=== PATIENT | female | born 1980 | race Caucasian/White ===

== ENCOUNTER 2019-06-08 19:28 | Inpatient (IN) | payer OTHER ==
[2019-06-08 19:40] LABS: ADD MAN DIFF? NO
[2019-06-08 19:42] LABS: ABNORMAL IP MESSAGE 1; BASOPHIL # 0.1 10^3/ul (0.0-0.1); BASOPHILS % 0.8 % (0.0-2.0); EOSINOPHILS # 0.2 10^3/ul (0.0-0.5); EOSINOPHILS % 1.6 % (0.0-7.0); HEMATOCRIT 45.7 % (37.0-47.0); HEMOGLOBIN 14.9 g/dl (12.0-16.0); LYMPHOCYTES % 42.7 % (15.0-51.0); MEAN CORPUSCULAR HGB CONC 32.6 g/dl (32.0-37.0); MEAN CORPUSCULAR VOLUME 85.9 fl (82.0-101.0); MEAN PLATELET VOLUME 9.8 fl (7.4-10.4); MONOCYTE # 1.1 10^3/ul (0.3-0.9); MONOCYTES % 7.6 % (0.0-11.0); NEUTROPHIL # 6.6 10^3/ul (1.6-7.5); NEUTROPHILS % 46.9 % (39.0-77.0); PLATELET COUNT 402 10^3/UL (140-415); RED BLOOD COUNT 5.32 10^6/ul (4.20-5.40); RED CELL DISTRIBUTION WIDTH 14.3 % (11.5-14.5)
[2019-06-08 19:47] LABS: POSITIVE DIFF @See below
[2019-06-08] MEDS: LORAZEPAM 2 MG INJ IV (19:48)
[2019-06-08 20:00] LABS: ANION GAP 19 (5-13); BLOOD UREA NITROGEN 11 mg/dl (7-20); CALCIUM 9.4 mg/dl (8.4-10.2); CARBON DIOXIDE 17 mmol/L (21-31); CHLORIDE 104 mmol/L (97-110); CREATININE 0.85 mg/dl (0.44-1.00); Estimated GFR > 60 mL/min (>60); GLUCOSE 169 mg/dl (70-220); SODIUM 140 mmol/L (135-144)
[2019-06-08] MEDS: ACETAMINOPHEN 325 MG TAB PO (20:56)
[2019-06-08] MEDS: ONDANSETRON 4 MG INJ IV ×2 (20:56→23:02)
[2019-06-08 21:20] LABS: AMPHETAMINE/METHAMPHETAMINE Negative (NEGATIVE); BARBITURATES Negative (NEGATIVE); BENZODIAZEPINES Negative (NEGATIVE); CANNABINOIDS Negative (NEGATIVE); COCAINE Negative (NEGATIVE); OPIATES Negative (NEGATIVE)
[2019-06-08] MEDS ORDERED: ONDANSETRON 4 MG INJ IV (21:30)
[2019-06-08] MEDS ORDERED: LORAZEPAM 2 MG INJ IV (21:30)
[2019-06-08] MEDS ORDERED: ACETAMINOPHEN 325 MG TAB PO (21:30)
[2019-06-08] MEDS: LEVETIRACETAM 1000 MG (PMX) 100 ML IVPB (21:53)
[2019-06-08] MEDS: POTASSIUM CHLORIDE (SR) 20 MEQ TAB PO (21:53)
[2019-06-08] MEDS: SOD CHLORIDE 0.9% 1,000 ML IV (23:03)
[2019-06-08] MEDS: morphine 4 MG/ML VIAL IV (23:03)
[2019-06-08 23:33] LABS: ADD UMIC YES; UR ASCORBIC ACID NEGATIVE (NEGATIVE); UR BILIRUBIN (Dip) NEGATIVE (NEGATIVE); UR BLOOD (Dip) NEGATIVE (NEGATIVE); UR CLARITY SLIGHTLY CLOUDY (CLEAR); UR COLOR YELLOW (YELLOW); UR GLUCOSE (Dip) NEGATIVE (NEGATIVE); UR KETONES (Dip) 1+ mg/dL (NEGATIVE); UR LEUKOCYTE ESTERASE (Dip) 1+ Leu/ul (NEGATIVE); UR NITRITE (Dip) NEGATIVE (NEGATIVE); UR RBC 11 /HPF (0-5); UR SQUAMOUS EPITHELIAL CELL FEW /HPF (FEW); UR TOTAL PROTEIN (Dip) 1+ mg/dl (NEGATIVE); UR UROBILINOGEN (Dip) NEGATIVE (NEGATIVE); UR WBC 6 /HPF (0-5)
[2019-06-09] MEDS: NS + KCL 20 MEQ 1,000 ML IV (00:45)
[2019-06-09] MEDS: ONDANSETRON 4 MG INJ IV (02:12)
[2019-06-09 06:28] LABS: ADD MAN DIFF? NO
[2019-06-09 06:33] LABS: BASOPHIL # 0.1 10^3/ul (0.0-0.1); BASOPHILS % 0.5 % (0.0-2.0); EOSINOPHILS # 0.1 10^3/ul (0.0-0.5); EOSINOPHILS % 0.7 % (0.0-7.0); HEMATOCRIT 41.4 % (37.0-47.0); HEMOGLOBIN 13.4 g/dl (12.0-16.0); LYMPHOCYTES # 2.6 10^3/ul (0.8-2.9); LYMPHOCYTES % 21.8 % (15.0-51.0); MEAN CORPUSCULAR HEMOGLOBIN 27.8 pg (29.0-33.0); MEAN CORPUSCULAR HGB CONC 32.4 g/dl (32.0-37.0); MEAN CORPUSCULAR VOLUME 85.9 fl (82.0-101.0); MEAN PLATELET VOLUME 9.8 fl (7.4-10.4); MONOCYTE # 0.9 10^3/ul (0.3-0.9); NEUTROPHIL # 8.1 10^3/ul (1.6-7.5); NEUTROPHILS % 68.7 % (39.0-77.0); PLATELET COUNT 350 10^3/UL (140-415); RED BLOOD COUNT 4.82 10^6/ul (4.20-5.40); RED CELL DISTRIBUTION WIDTH 14.4 % (11.5-14.5)
[2019-06-09 06:33] LABS: WHITE BLOOD COUNT 11.7 10^3/ul (4.8-10.8)
[2019-06-09 06:56] LABS: ALANINE AMINOTRANSFERASE 41 IU/L (13-69); ALBUMIN 3.7 g/dl (3.3-4.9); ALKALINE PHOSPHATASE 65 IU/L (42-121); ANION GAP 8 (5-13); ASPARTATE AMINO TRANSFERASE 31 IU/L (15-46); BILIRUBIN,INDIRECT 0.6 mg/dl (0-1.1); BILIRUBIN,TOTAL 0.6 mg/dl (0.2-1.3); BLOOD UREA NITROGEN 9 mg/dl (7-20); CALCIUM 8.3 mg/dl (8.4-10.2); CARBON DIOXIDE 23 mmol/L (21-31); CHLORIDE 112 mmol/L (97-110); CREATININE 0.63 mg/dl (0.44-1.00); Estimated GFR > 60 mL/min (>60); GLUCOSE 101 mg/dl (70-220); POTASSIUM 3.6 mmol/L (3.5-5.1); SODIUM 143 mmol/L (135-144); TOTAL PROTEIN 7.4 g/dl (6.1-8.1)
[2019-06-09 08:06] LABS: HEMOGLOBIN A1C 5.7 % (0-5.9)
[2019-06-09] MEDS: ACETAMINOPHEN 325 MG TAB PO (08:53)
[2019-06-09] MEDS: LEVETIRACETAM 500 MG TAB PO ×2 (08:53→22:13)
[2019-06-09] MEDS: DEXAMETHASONE 2 MG TAB PO ×2 (17:25→22:13)
[2019-06-09] MEDS: TOPIRAMATE 25 MG TAB PO ×2 (17:25→22:14)
[2019-06-09] MEDS: LIDOCAINE 2% VISC 15 ML CUP PO (17:51)
[2019-06-10] MEDS: DEXAMETHASONE 2 MG TAB PO ×3 (06:30→20:48)
[2019-06-10] MEDS: TOPIRAMATE 25 MG TAB PO ×2 (08:49→20:08)
[2019-06-10] MEDS: LEVETIRACETAM 500 MG TAB PO ×2 (08:49→20:08)
[2019-06-10] MEDS: LOSARTAN 50 MG TAB PO (14:16)
[2019-06-10] MEDS: HYDROCHLOROTHIAZIDE 12.5 MG CAP PO (14:16)
[2019-06-10] MEDS: ACETAMINOPHEN 325 MG TAB PO (20:08)
[2019-06-10] MEDS: DOCUSATE SODIUM 100 MG CAP PO (20:48)
[2019-06-11] MEDS ORDERED: PROPOFOL 20 ML (07:31)
[2019-06-11] MEDS ORDERED: LIDOCAINE 2% (SDV) 5 ML INJ (07:33)
[2019-06-11] MEDS ORDERED: ROCURONIUM 50 MG INJ (07:33)
[2019-06-11] MEDS ORDERED: CEFAZOLIN 1 GM INJ (07:35)
[2019-06-11] MEDS ORDERED: DEXAMETHASONE 4 MG/ML 5 ML INJ (07:35)
[2019-06-11] MEDS: THROMBIN 5000 UNIT (RECOTHROM) VIAL (07:59)
[2019-06-11] MEDS: GELATIN SIZE 100 SPONGE (07:59)
[2019-06-11] MEDS: POLYMYXIN/BACITRACIN 1L IRRIG (08:00)
[2019-06-11] MEDS ORDERED: LIDOCAINE 1%/EPI 30 ML INJ (08:00)
[2019-06-11] MEDS ORDERED: POVIDONE IODINE 10% 28.4 GM OINT (08:00)
[2019-06-11] MEDS ORDERED: NEOMYC/POLYMYX/BACIT 30 GM OINT (08:00)
[2019-06-11] MEDS ORDERED: BACITRACIN 50000 UNITS INJ (08:03)
[2019-06-11] MEDS: LOSARTAN 50 MG TAB PO (10:21)
[2019-06-11] MEDS: DEXAMETHASONE 2 MG TAB PO (10:21)
[2019-06-11] MEDS: LEVETIRACETAM 500 MG TAB PO ×2 (10:22→20:47)
[2019-06-11] MEDS: TOPIRAMATE 25 MG TAB PO ×2 (10:22→20:48)
[2019-06-11] MEDS: HYDROCHLOROTHIAZIDE 12.5 MG CAP PO (10:22)
[2019-06-11] MEDS ORDERED: MANNITOL 20% 500 ML IV (10:30)
[2019-06-11] MEDS ORDERED: SUGAMMADEX SODIUM 200 MG/2 ML VIAL IV (10:47)
[2019-06-11] MEDS ORDERED: ONDANSETRON 4 MG INJ (10:47)
[2019-06-11] MEDS ORDERED: LABETALOL HCL 20MG INJ (10:57)
[2019-06-11] MEDS ORDERED: MEPERIDINE 25 MG INJ IV (11:30)
[2019-06-11] MEDS ORDERED: EPHEDrine 25 MG/5 ML SYG IV (11:30)
[2019-06-11] MEDS ORDERED: LABETALOL HCL 20MG INJ IV (11:30)
[2019-06-11] MEDS ORDERED: HYDROmorphONE 0.5 MG/0.5 ML SYG IV ×2 (11:30)
[2019-06-11] MEDS ORDERED: MIDAZOLAM 1 MG/ML 2 ML INJ IV (11:30)
[2019-06-11] MEDS ORDERED: DIPHENHYDRAMINE 50 MG INJ IV (11:30)
[2019-06-11] MEDS ORDERED: ONDANSETRON 4 MG INJ IV (11:30)
[2019-06-11] MEDS ORDERED: ALBUTEROL 0.083% (NEB) 2.5 MG/3 ML AMP HHN (11:30)
[2019-06-11] MEDS: hydrALAzine 20 MG INJ IV (11:49)
[2019-06-11] MEDS: DEXAMETHASONE 4 MG/ML 1 ML INJ IV ×2 (11:57→17:30)
[2019-06-11] MEDS: SOD CHLORIDE 0.9% 1,000 ML IV (12:01)
[2019-06-11] MEDS: HYDROmorphONE 0.5 MG/0.5 ML SYG IV ×3 (12:17→20:49)
[2019-06-11] MEDS: CEFAZOLIN 1 GM/50 ML (PMX) 50 ML IVPB ×2 (13:31→21:27)
[2019-06-12] MEDS: DEXAMETHASONE 4 MG/ML 1 ML INJ IV ×4 (00:57→17:45)
[2019-06-12] MEDS: HYDROmorphONE 0.5 MG/0.5 ML SYG IV ×3 (00:57→20:35)
[2019-06-12] MEDS: SOD CHLORIDE 0.9% 1,000 ML IV ×2 (00:58→17:02)
[2019-06-12] MEDS: CEFAZOLIN 1 GM/50 ML (PMX) 50 ML IVPB ×3 (05:30→22:10)
[2019-06-12 06:26] LABS: ADD MAN DIFF? NO
[2019-06-12 06:29] LABS: WHITE BLOOD COUNT 19.1 10^3/ul (4.8-10.8)
[2019-06-12 06:29] LABS: BASOPHILS % 0.1 % (0.0-2.0); HEMATOCRIT 37.8 % (37.0-47.0); HEMOGLOBIN 12.1 g/dl (12.0-16.0); LYMPHOCYTES # 1.4 10^3/ul (0.8-2.9); LYMPHOCYTES % 7.4 % (15.0-51.0); MEAN CORPUSCULAR HEMOGLOBIN 28.4 pg (29.0-33.0); MEAN CORPUSCULAR VOLUME 88.7 fl (82.0-101.0); MEAN PLATELET VOLUME 10.1 fl (7.4-10.4); MONOCYTE # 1.1 10^3/ul (0.3-0.9); NEUTROPHIL # 16.4 10^3/ul (1.6-7.5); NEUTROPHILS % 85.9 % (39.0-77.0); PLATELET COUNT 323 10^3/UL (140-415); RED BLOOD COUNT 4.26 10^6/ul (4.20-5.40); RED CELL DISTRIBUTION WIDTH 15.1 % (11.5-14.5)
[2019-06-12 07:05] LABS: ALANINE AMINOTRANSFERASE 32 IU/L (13-69); ALBUMIN 3.3 g/dl (3.3-4.9); ALBUMIN/GLOBULIN RATIO 0.91; ALKALINE PHOSPHATASE 60 IU/L (42-121); ANION GAP 6 (5-13); ASPARTATE AMINO TRANSFERASE 22 IU/L (15-46); BILIRUBIN,INDIRECT 0.4 mg/dl (0-1.1); BILIRUBIN,TOTAL 0.4 mg/dl (0.2-1.3); BLOOD UREA NITROGEN 11 mg/dl (7-20); CALCIUM 8.4 mg/dl (8.4-10.2); CARBON DIOXIDE 20 mmol/L (21-31); CHLORIDE 112 mmol/L (97-110); CREATININE 0.66 mg/dl (0.44-1.00); Estimated GFR > 60 mL/min (>60); GLUCOSE 149 mg/dl (70-220); POTASSIUM 3.6 mmol/L (3.5-5.1); SODIUM 138 mmol/L (135-144); TOTAL PROTEIN 6.9 g/dl (6.1-8.1)
[2019-06-12] MEDS: LEVETIRACETAM 500 MG TAB PO ×2 (08:51→20:17)
[2019-06-12] MEDS: TOPIRAMATE 25 MG TAB PO ×2 (08:53→20:18)
[2019-06-12] MEDS: HYDROCHLOROTHIAZIDE 12.5 MG CAP PO (08:53)
[2019-06-12] MEDS: LOSARTAN 50 MG TAB PO (08:54)
[2019-06-12] MEDS: ACETAMINOPHEN 325 MG TAB PO ×2 (12:00→17:45)
[2019-06-13] MEDS: DEXAMETHASONE 4 MG/ML 1 ML INJ IV ×2 (00:47→06:19)
[2019-06-13] MEDS: SOD CHLORIDE 0.9% 1,000 ML IV ×3 (06:19→22:14)
[2019-06-13] MEDS: CEFAZOLIN 1 GM/50 ML (PMX) 50 ML IVPB (06:19)
[2019-06-13] MEDS: CEPASTAT LOZENGE MT ×2 (09:36→12:49)
[2019-06-13] MEDS: LEVETIRACETAM 500 MG TAB PO ×2 (09:37→20:27)
[2019-06-13] MEDS: LOSARTAN 50 MG TAB PO (09:37)
[2019-06-13] MEDS: TOPIRAMATE 25 MG TAB PO ×2 (09:38→20:26)
[2019-06-13] MEDS: HYDROCHLOROTHIAZIDE 12.5 MG CAP PO (09:38)
[2019-06-13] MEDS: HYDROmorphONE 0.5 MG/0.5 ML SYG IV ×2 (12:49→20:27)
[2019-06-13] MEDS: ACETAMINOPHEN 325 MG TAB PO (20:25)
[2019-06-13] MEDS: DOCUSATE SODIUM 100 MG CAP PO (20:26)
[2019-06-13] MEDS: NACL 0.9% 3 ML SYG IV (20:27)
[2019-06-13] MEDS: BISACODYL (EC) 5 MG TAB PO (20:27)
[2019-06-14 04:56] LABS: ADD MAN DIFF? NO
[2019-06-14 05:04] LABS: WHITE BLOOD COUNT 14.1 10^3/ul (4.8-10.8)
[2019-06-14 05:04] LABS: BASOPHILS % 0.2 % (0.0-2.0); EOSINOPHILS # 0.1 10^3/ul (0.0-0.5); EOSINOPHILS % 0.5 % (0.0-7.0); HEMATOCRIT 41.1 % (37.0-47.0); HEMOGLOBIN 13.4 g/dl (12.0-16.0); LYMPHOCYTES # 4.4 10^3/ul (0.8-2.9); LYMPHOCYTES % 31.1 % (15.0-51.0); MEAN CORPUSCULAR HEMOGLOBIN 28.3 pg (29.0-33.0); MEAN CORPUSCULAR HGB CONC 32.6 g/dl (32.0-37.0); MEAN CORPUSCULAR VOLUME 86.7 fl (82.0-101.0); MONOCYTE # 1.2 10^3/ul (0.3-0.9); MONOCYTES % 8.6 % (0.0-11.0); NEUTROPHIL # 8.3 10^3/ul (1.6-7.5); NEUTROPHILS % 58.6 % (39.0-77.0); PLATELET COUNT 337 10^3/UL (140-415); RED BLOOD COUNT 4.74 10^6/ul (4.20-5.40); RED CELL DISTRIBUTION WIDTH 14.6 % (11.5-14.5)
[2019-06-14 05:19] LABS: ANION GAP 8 (5-13); BLOOD UREA NITROGEN 17 mg/dl (7-20); CALCIUM 8.7 mg/dl (8.4-10.2); CARBON DIOXIDE 20 mmol/L (21-31); CHLORIDE 110 mmol/L (97-110); CREATININE 0.81 mg/dl (0.44-1.00); Estimated GFR > 60 mL/min (>60); GLUCOSE 110 mg/dl (70-220); MAGNESIUM 2.1 mg/dl (1.7-2.5); PHOSPHORUS 2.7 mg/dl (2.5-4.9); POTASSIUM 3.1 mmol/L (3.5-5.1); SODIUM 138 mmol/L (135-144)
[2019-06-14] MEDS: LEVETIRACETAM 500 MG TAB PO (08:45)
[2019-06-14] MEDS: TOPIRAMATE 25 MG TAB PO (08:45)
[2019-06-14] MEDS: HYDROCHLOROTHIAZIDE 12.5 MG CAP PO (08:45)
[2019-06-14] MEDS: LOSARTAN 50 MG TAB PO (08:46)
[2019-06-14] MEDS: POTASSIUM CHLORIDE 20 MEQ POWDER FOR ORAL SOLN PO (10:13)
[2019-06-14] MEDS: DEXAMETHASONE 4 MG TAB PO (12:27)
[2019-06-15] MEDS ORDERED: ASA/ACETAMINOPHEN/CAFF TAB PO (01:00)
== END 2019-06-14 13:25 | disposition home or self-care (01) | DRG 25 ==
LOC: TEL 06-09 02:42 → ICU 06-11 10:00 → MS1 06-12 16:36 → TEL 06-09 03:21 → ICU 06-12 16:36 → E/R 19:28 → TEL 06-11 10:00 → ICU 06-11 10:00 → MS1 06-12 16:36 → ICU 06-12 16:36 → TEL 06-11 10:00 → ICU 06-11 10:00 → MS1 06-12 16:36
PROC: 00B10ZZ Excision of Cerebral Meninges, Open Approach (ICD-10-PCS; principal; 2019-06-11 07:30)
PROC: 8E09XBZ Computer Assisted Procedure of Head and Neck Region (ICD-10-PCS; 2019-06-11 07:30)
DX: D32.0 Benign neoplasm of cerebral meninges (principal); G93.6 Cerebral edema; E66.01 Morbid (severe) obesity due to excess calories; G40.909 Epilepsy, unspecified, not intractable, without status epilepticus; R41.0 Disorientation, unspecified; I10 Essential (primary) hypertension; Z68.39 Body mass index [BMI] 39.0-39.9, adult
CPT/HCPCS: 36415; 70450; 70552; 70553; 71045; 80048; 80053; 80307; 81001; 81025; 82962; 83036; 83735; 84100; 84443; 85025; 87081; 88307; 93005; 95819; 96374; 96375; 97116; 97161; 97164; 97530; 99285-25